=== PATIENT | female | born 1960 | race Caucasian/White ===

== ENCOUNTER 2016-11-05 10:05 | Day surgery (SDC) | payer BC ==
[~2016-11-05] VITALS: Ht 167.6 cm; Wt 90.7 kg
[~2016-11-05 10:05] MED LIST: ALEVE220 MG PO; CELECOXIB200 MG PO; CENTRUM SILVER1 EAC3 PO; ENDOCET 5-3251 EACH PO; FEOSOL45 MG PO; LORCET 5-325 M1 EACH PO; LORCET HD 10-31 EACH PO; LOSARTAN-HCTZ1 EACH PO; LOVENOX40 MG/0.4 SC; OXYCONTIN10 MG PO; STOOL SOFTENER100 M1 PO; VICODIN 5-3001 EACH PO
== END 2016-11-05 12:50 | disposition home or self-care (01) ==
LOC: PAIN 10:05 → SDC 10:30 → PAIN 12:50
PROC: 3E0U33Z Introduction of Anti-inflammatory into Joints, Percutaneous Approach (ICD-10-PCS; principal; 2016-11-05)
DX: M46.1 Sacroiliitis, not elsewhere classified (principal); I10 Essential (primary) hypertension; F17.200 Nicotine dependence, unspecified, uncomplicated
CPT/HCPCS: J1030; J3010; S0020